=== PATIENT | male | born 1970 | race Caucasian/White ===

== ENCOUNTER 2018-06-14 00:08 | Emergency (ER) | payer OTHER ==
[~2018-06-14] VITALS: Ht 185.4 cm; Wt 70.8 kg
[2018-06-14 00:20] VITALS: BP 124/74
--- NOTE | 2018-06-14 00:29 | NUR ---
PT IN PERSONAL WHEELCHAIR TO ER BED 09
--- NOTE | 2018-06-14 00:37 | NUR ---
DR BARR AT BEDSIDE.
[2018-06-14] MEDS ORDERED: CLINDAMYCIN 600 MG/4 ML VIAL IM ONE (00:40)
--- NOTE | 2018-06-14 00:44 | NUR ---
PT C/O SORES ON BL KNEES, L HIP AND SACRAL PRESSURE SORES PAIN 10/10. DENIES OTHER SYMPTOMS. DR BARR MADE AWARE. PATIENT GIVEN STRAIGHT CATH TO URINATE.
[2018-06-14 02:25] VITALS: BP 102/61
--- NOTE | 2018-06-14 02:25 | NUR ---
DISCHARGE PAPERS GIVEN TO PATIENT. 510 PAIN BUT TOLLERABLE. AFEBRILE WITH VSS. GIVEN RX OF BACTRIM. SIDE EFFECTS EXPLAINED. INSTRUCTED TO F/U WITH WITH PCP AND WHEN TO RETURN TO ER. PT VERBALLIZED UNDERSTANDING OF DC INSTRUCTIONS. ALL QUESTIONS ANSWERED.
== END 2018-06-14 02:25 | disposition home or self-care (01) ==
LOC: MED 00:08
DX: L03.116 Cellulitis of left lower limb (principal); L03.115 Cellulitis of right lower limb; Z88.8 Allergy status to other drugs, medicaments and biological substances
CPT/HCPCS: 96372; 99283; J3490